=== PATIENT | male | born 2005 | race Caucasian/White ===

== ENCOUNTER 2024-11-22 19:02 | Emergency (ER) | payer OTHER, SELFPAY ==
[2024-11-22 19:04] VITALS: BP 92/59
[2024-11-22 19:22] LABS: Urine Albumin 1+ (Neg - Trace); Urine Bilirubin Negative (Negative); Urine Character Clear (Clear); Urine Color Yellow; Urine Glucose Negative (Negative); Urine Ketone Negative (Negative); Urine Leukocyte 1+ (Negative); Urine Nitrite Negative (Negative); Urine Occult Blood Negative (Negative); Urine Urobilinogen 1+ (Neg - 1+)
[2024-11-22 19:29] LABS: % Basophils 0.3 % (0-2); % Eosinophils 1.1 % (0-6); % Immature Granulocytes 0.2 % (0-0.5); % Lymphocytes 17.8 % (20.5-51.1); % Monocytes 6.9 % (1.7-9.3); % Neutrophils 73.7 % (42.2-75.2); Absolute Eosinophils 0.1 10^3/uL (0-0.7); Absolute Lymphocytes 1.1 10^3/uL (1.2-3.4); Absolute Monocytes 0.4 10^3/uL (0.1-0.6); Absolute Neutrophils 4.6 10^3/uL (1.4-6.5); Mean Corpuscular Hgb 30.9 pg (27.0-31.0); Mean Corpuscular Volume 88.3 fL (80.0-94.0); Mean Platelet Volume 10.3 fL (7.4-10.4); Nucleated Red Blood Cells % 0 % (-); Platelet Count 127 10^3/uL (130-400); Red Blood Cell Count 4.53 10^6/uL (4.70-6.10); White Blood Cell Count 6.2 10^3/uL (4.8-10.8)
[2024-11-22 19:32] LABS: Urine Squamous Cell 0-2 /LPF (Few)
[2024-11-22 19:33] LABS: Urine Red Blood Cell 0-2 /HPF (0-2)
[2024-11-22 19:34] LABS: Urine Bacteria Few (Negative)
[2024-11-22 19:39] VITALS: BP 115/60; BMI 24.4
[2024-11-22 19:50] LABS: ALT (SGPT) 12 U/L (0-50); AST (SGOT) 34 U/L (17-59); Albumin 4.1 g/dl (3.5-5.0); Alkaline Phosphatase 67 U/L (38-126); Blood Urea Nitrogen 19 mg/dl (9-20); Calcium 8.9 mg/dl (8.4-10.2); Carbon Dioxide 27 mmol/L (22-30); Chloride 101 mmol/L (98-107); Estimated Creatinine Clearance > 125 ml/min; Glucose 130 mg/dl (70-99); Potassium 4.4 mmol/L (3.5-5.1); Sodium 136 mmol/L (135-145); Total Bilirubin 0.6 mg/dl (0.2-1.3); Total Protein 7.1 g/dl (6.3-8.2); eGFR > 60.00
[2024-11-22 20:00] VITALS: BP 114/54
[2024-11-22 20:46] LABS: COVID-19 Antigen Negative (Negative)
--- NOTE | 2024-11-22 21:34 | ED.GENMED ---
History of Present Illness
General
Chief Complaint: Fever
Time Seen by Provider: 11/22/24 20:42
History of Present Illness
History of Present Illness:
Note:
CHIEF COMPLAINT(S)
Fever and low back pain.
HISTORY OF PRESENT ILLNESS
The patient is a 18-year-old male presenting with a chief complaint of fever and low back pain. The onset of symptoms began approximately one day ago, with the back pain becoming significantly worse today. The fever started concurrently with the
back pain. The patient describes the pain as located in the lower back where it almost meets the hip, without any tenderness to palpation either centrally or laterally in the back. The patient denies any recent injuries that could have caused back
injury and denies respiratory symptoms, such as coughing. There is no dysuria, increased frequency of urination, or recent contacts with unwell individuals. On examination, there is no abdominal pain, and the back is not tender to palpation. The
patient reports a past episode of penile discharge, which was described as thick white, but denied any sexually transmitted infections, with previous tests confirming negativity. He reports having one new sexual partner since his last test. COVID
and influenza test results were negative. Labs showed normal white blood cell count, making a bacterial infection less likely, and the urine test did not convincingly indicate a urinary tract infection.
ADDITIONAL HISTORY OBTAINED FROM SOURCES OTHER THAN THE PATIENT
No Content
EXTERNAL RECORDS REVIEWED
According to records from an ophtho visit, the patient was previously evaluated for conjunctivitis and released. All sexually transmitted infection tests returned negative during that visit.
PHYSICAL EXAM
GEN: Well appearing, NAD, WDWN
HEENT: Oral mucosa moist, no scleral icterus, oropharynx without erythema or exudates
Cardiac: Regular rate and rhythm, no murmurs
Lung: No respiratory distress, no tachypnea, lungs clear to auscultation
Abdomen: Soft, grossly nontender
MSK: No gross deformity or injuries. No midline lumbar spine tenderness
Skin: Good color, no pallor or jaundice, no rashes
Neuro: AO x3, moves all extremities freely
Psych: Calm, cooperative
PROBLEM LIST
- Acute: Fever, Low Back Pain
PLAN
1. Lyme add on as well as UCx
4. Presumptively treat for gonorrhea and chlamydia with single-dose antibiotics based on the prior penile discharge.
5. Recommend the use of ibuprofen every six hours for pain and fever control.
DIFFERENTIAL DIAGNOSIS
The Differential Diagnosis includes, in no particular order and is not limited to:
1. Viral Illness
2. Urinary Tract Infection
3. Sexually Transmitted Infection
4. Lyme Disease
5. Epididymitis
6. Inflammatory Musculoskeletal Condition
7. Kidney Stone
8. Diskitis
9. Osteomyelitis
10. Back Strain
Disposition:
DIAGNOSIS
- Fever
SUMMARY OF ENCOUNTER
The patient is a 18-year-old male who presented with tactile fever and low back pain. Upon examination, he appeared well, was afebrile, and had a normal physical exam with regular cardiac rate and rhythm, clear lungs, and a soft, non-tender abdomen.
There was no tenderness of the midline lumbar spine, and no obvious rashes were present. The patient has a history of recent penile discharge and reported a new sexual partner, prompting consideration for a sexually transmitted infection. Labs
showed no leukocytosis, and the urinalysis was unremarkable. No risk factors for vertebral osteo or discitis.
ASSESSMENT
The patients symptoms and recent history of penile discharge warrant consideration of a sexually transmitted infection. The back pain without palpable tenderness and concurrent fever suggests possible infectious or other inflammatory causes.
INDEPENDENT INTERPRETATION OF TESTS
My independent interpretation of the complete blood count (CBC) is that there is no leukocytosis, reducing the likelihood of a bacterial infection.
My independent interpretation of the urinalysis is that it is unremarkable, lowering the suspicion of a urinary tract infection.
MEDICATION RECONCILIATION
1. Administer intravenous antibiotics for the kai-rectal abscess.
2. Presumptively treat for gonorrhea and chlamydia with single-dose antibiotics based on the prior penile discharge.
3. Recommend ibuprofen every six hours for pain and fever.
MEDICAL DECISION MAKING
Number and Complexity of Problems Addressed: The patient presented with symptoms suggestive of a sexually transmitted infection, fever, and low back pain. The evaluation required consideration of infectious, inflammatory, and other differential
diagnoses.
Data: Reviewed labs, including normal WBC count and bland urinalysis. Based on the differential diagnosis and the patient�s history, appropriate testing and treatment were initiated.
Risk: Consideration for the possible need for hospitalization due to the kai-rectal abscess. Prescription drug management and initiation of IV antibiotics were significant in managing the patients condition.
Past History
Past History
ED Past Medical History: None
ED Past Surgical History: None
Social History
Tobacco: Non-smoker
Alcohol: Occasional
Personal: Single
Living: with family
Employment: Student
Phy Exam
Physical Exam
Physical Exam:
.
Sepsis
Sepsis Screening
Sepsis Assessment: Sepsis Ruled Out
Sepsis Screen
Sepsis Screen: Sepsis Ruled Out
Date: 11/22/24
Time: 22:53
Course
Orders/Labs/Results
Orders:
Orders
11/22/24 19:15
Complete Blood Count/With Diff Urgent
Comprehensive Metabolic Panel Urgent
Lyme Progressive Urgent
Date Specimen was Collected: 11/22/24
Time Specimen was Collected: 19:07
Comment: ADD ON
Urinalysis Reflex To Culture Urgent
Date Specimen was Collected: 11/22/24
Time Specimen was Collected: 19:07
Urine Microscopic Reflex Cult Urgent
Urine Culture Urgent
[place] Source: U
Specimen Description:
Date Specimen was Collected: 11/22/24
Time Specimen was Collected: 19:07
11/22/24 20:25
Influenza A+B Rapid Molecular Urgent
[place] Source: Nasal Swab
Specimen Description:
11/22/24 20:26
COVID-19 Antigen Urgent
Source: Nasal Swab
11/22/24 21:35
Add On - Microbiology Urgent
Tests Added?: GC/Chlamydia urine
Azithromycin [Zithromax] 1,000 mg PO NOW STA
Ceftriaxone Sodium [Rocephin] 500 mg IM NOW STA
11/22/24 21:36
Add On- LAB Urgent
Tests Added?: Lyme progressive
11/22/24 21:47
Add On - Microbiology Urgent
Tests Added?: urine culture
11/22/24 21:56
Sterile Water [Sterile Water For Injection] 10 ml .ROUTE .STK-MED ONE
Abnormal Lab Results
11/22/24
19:15
RBC 4.53 L 10^6/uL
(4.70-6.10)
Plt Count 127 L 10^3/uL
(130-400)
Absolute Lymphs (auto) 1.1 L 10^3/uL
(1.2-3.4)
Lymphocytes % 17.8 L %
(20.5-51.1)
Glucose 130 H mg/dl
(70-99)
Leukocyte Esterase Rfl 1+ A
(Negative)
Urine Bacteria (Reflex) Few A
(Negative)
Urine Albumin (Reflex) 1+ A
(Neg - Trace)
11/22/24 19:15
11/22/24 19:15
Vital Signs
Initial and Last Documented VS:
Initial Vital Signs
Temp Pulse Resp BP Pulse Ox
99.7 F 94 19 92/59 98
11/22/24 19:04 11/22/24 19:04 11/22/24 19:04 11/22/24 19:04 11/22/24 19:04
Last Documented Vital Signs
Temp Pulse Resp BP Pulse Ox
99.7 F 94 19 114/54 98
11/22/24 19:04 11/22/24 19:04 11/22/24 19:04 11/22/24 20:00 11/22/24 21:45
*Critical Care Note
Total Time (30-74mins, 75-104mins- exclusive of procedures): Not Applicable
ED Attending Note
-
Portions of this chart may have been created with voice recognition software.� Occasional wrong word or��sound alike� substitutions may have occurred due to the inherent limitations of voice recognition software.
Discharge Plan
Departure
Patient Disposition: Home (Routine Discharge)
Date of Disposition: 11/22/24
Time of Disposition: 21:37
Patient with high blood pressure during this ER visit?: No
Discharge Problem:
Fever
Instructions: Fever, Adult (DC)
Prescriptions:
No Action
ondansetron 4 mg tablet,disintegrating
4 mg PO Q8H PRN (Reason: nausea and vomiting) 4 Days Qty: 14 0RF
Referrals:
Aimee Batres MD [Family Provider, Family Practice]
Activity Restrictions/Additional Instructions:
The cause of your fever is not immediately clear. Urine culture testing as well as Lyme disease testing are pending at this time in addition we sent test for sexually transmitted infections given reported recent penile discharge. We discussed the
low probability for conditions such as bone or disc infections of the low back. Please control your pain with Tylenol and ibuprofen 6 to 8 hours and return to the emergency department if your fever does not resolve within 5 days if all of your
other test return negative
Interventions
Interventions:
*Risk Screen - Suicide Last Done: 11/22/24 19:04
*General Assessment Last Done: 11/22/24 19:39
*Neglect/Abuse Screening Last Done: 11/22/24 19:04
*ED- Fall Risk Assessment Last Done: 11/22/24 19:39
*ED COVID-19 Vaccine History Last Done: 11/22/24 19:39
ED- Neurological Assessment Last Done: 11/22/24 19:39
ED-Skin Assessment Last Done: 11/22/24 19:39
Discharge Date and Time
Print Language: KOREAN
[2024-11-22] MEDS: ZITHROMAX 1000 MG PO (21:54)
[2024-11-22] MEDS: ROCEPHIN 500 MG IM (21:55)
== END 2024-11-22 22:05 | disposition home or self-care (01) ==
LOC: EMR 19:02
PROVIDERS: Emergency Medicine; EMERGENCY PHYSICIAN Emergency Medicine; FAMILY PHYSICIAN Family Medicine
DX: R50.9 Fever, unspecified (principal); M54.50 Low back pain, unspecified; Z11.52 Encounter for screening for COVID-19
CPT/HCPCS: 96372; 99284; 80053; 81003; 81015; 85025; 86618; 87086; 87491; 87502; 87591; 87811